=== PATIENT | female | born 1965 | race Two or more races ===

== ENCOUNTER 2021-12-29 05:30 | Inpatient (IN) | payer OTHER ==
[~2021-12-29] VITALS: Ht 162.6 cm; Wt 53.1 kg
== END 2021-12-31 12:26 | disposition home or self-care (01) | DRG 583 ==
LOC: CIR.AMB 05:30 → OB/GYN 20:16
PROVIDERS: ADMIT Surgery; ATTEND Surgery
PROC: 0HTV0ZZ Resection of Bilateral Breast, Open Approach (ICD-10-PCS; principal; 2021-12-29 07:00)
DX: D05.11 Intraductal carcinoma in situ of right breast (principal); D18.09 Hemangioma of other sites; Z20.822 Contact with and (suspected) exposure to COVID-19

== ENCOUNTER 2021-12-29 08:01 | Outpatient (CLI) | payer OTHER | END 2021-12-29 08:27 | disposition home or self-care (01) | LOC: SONOGRAMA 08:01 | PROVIDERS: ATTEND Surgery | DX: C50.411 Malignant neoplasm of upper-outer quadrant of right female breast (principal) ==